=== PATIENT | male | born 1935 | race Caucasian/White ===

== ENCOUNTER 2019-01-16 13:11 | Inpatient (IN) | payer OTHER, MEDICAID ==
[~2019-01-16] VITALS: Ht 162.6 cm; Wt 44.5 kg
[2019-01-16 13:12] VITALS: BP_SYST 132
[2019-01-16 14:53] LABS: BILIRUBIN,URINE NEGATIVE (NEGATIVE); BLOOD, URINE NEGATIVE (NEGATIVE); COLOR,URINE YELLOW (YELLOW); GLUCOSE,URINE NEGATIVE (NEGATIVE); KETONES,URINE TRACE (NEGATIVE); LEUKOCYTE ESTERASE ,URINE NEGATIVE (NEGATIVE); NITRITE, URINE NEGATIVE (NEGATIVE); PROTEIN URINE 1+ (NEGATIVE); UROBILINOGEN,URINE 0.2 (0.2-1.0)
[2019-01-16 15:05] LABS: HEMATOCRIT 38.6 % (36-54); HEMOGLOBIN 12.5 g/dL (14.0-18.0); RED BLOOD CELL COUNT(AUTO) 4.14 MIL/uL (4.2-6.2); WHITE BLOOD COUNT (AUTO) 10.6 K/uL (4.8-10.8)
[2019-01-16 15:06] LABS: RBC,URINE 0-3 /HPF (0-3)
[2019-01-16 15:06] LABS: MEAN CORPUSCULAR HEMOGLOBIN 30 pg (27-31); MEAN CORPUSCULAR HGB CONC 33 % (32-36); MEAN CORPUSCULAR VOLUME 93 fL (79.0-98.0); PLATELET COUNT (AUTO) 263 K/uL (130-430); RED CELL DISTRIBUTION WIDTH 15.7 % (9.0-15.0)
[2019-01-16 15:07] LABS: MUCUS,URINE None Seen /LPF (None Seen)
[2019-01-16 15:11] LABS: ANION GAP 4 (5-15); CALCIUM 9.4 mg/dL (8.4-11.0); CHLORIDE 100 mmol/L (98-107); GLUCOSE 182 mg/dL (70-99); POTASSIUM 4.9 mmol/L (3.5-5.1); SODIUM SERUM 135 mmol/L (136-145); UREA NITROGEN, BLOOD 40 mg/dL (8-21)
[2019-01-16 15:11] LABS: CLARITY/URINE CLEAR (CLEAR); WBC,URINE 0-3 /HPF (0-3)
[2019-01-16 15:12] LABS: BACTERIA,URINE FEW /HPF (None Seen)
[2019-01-16 15:15] LABS: ALANINE AMINOTRANSFERASE 31 U/L (12-78); ALBUMIN 2.8 g/dL (3.4-4.8); ASPARTATE AMINOTRANSFERASE 31 U/L (10-37); LIPASE 54 U/L (73-393); TOTAL BILIRUBIN 0.4 mg/dL (0.0-1.0)
[2019-01-16 15:26] LABS: BAND % (MANUAL) 11 % (0-6); LYMPHOCYTES % (MANUAL) 5 % (20-46)
[2019-01-16 15:27] LABS: BASOPHILS % (MANUAL) 0 % (0-2); EOSINOPHILS % (MANUAL) 0 % (0-7); MONOCYTES % (MANUAL) 1 % (0-11)
[2019-01-16] MEDS ORDERED: KCL 20 mEq in D5/0.45NS 1000mL 1,000 ML IV SCH (15:52)
[2019-01-16 16:20] VITALS: BP_SYST 153
[2019-01-16 16:52] VITALS: BP_SYST 153
[2019-01-16] MEDS ORDERED: HALOPERIDOL LACTATE 5 MG/ML VIAL IM ONE (17:45)
[2019-01-16] MEDS ORDERED: HALOPERIDOL LACTATE 5 MG/ML VIAL ONE (18:12)
[2019-01-16] MEDS ORDERED: DOCU-144 PO (18:32)
[2019-01-16] MEDS ORDERED: DIVA-50 PO (18:34)
[2019-01-16] MEDS ORDERED: ALBMDI INH (18:34)
[2019-01-16] MEDS ORDERED: CLON0.5T12 PO (18:35)
[2019-01-16] MEDS ORDERED: IPRA3AMP9 INH (18:37)
[2019-01-16] MEDS ORDERED: HYDR-4272 PO (18:37)
[2019-01-16] MEDS ORDERED: MOM PO (18:37)
[2019-01-16] MEDS ORDERED: MEMA5TAB PO (18:45)
[2019-01-16] MEDS ORDERED: DIPH25CA83 PO (18:45)
[2019-01-16] MEDS ORDERED: ATOR40TA68 PO (18:45)
[2019-01-16] MEDS ORDERED: MULT-1117 PO (18:45)
[2019-01-16] MEDS ORDERED: ASCO500C18 PO (18:45)
[2019-01-16] MEDS ORDERED: DONE10TA44 PO (18:45)
[2019-01-16] MEDS ORDERED: TRAZ-218 PO (18:45)
[2019-01-16] MEDS ORDERED: ASPI-859 PO (18:45)
[2019-01-16] MEDS ORDERED: ACET-2165 PO (18:45)
[2019-01-16] MEDS ORDERED: NIFE60TA83 PO (18:45)
[2019-01-16] MEDS ORDERED: MELA3TAB PO (18:47)
[2019-01-16] MEDS ORDERED: PRED20TA PO (18:47)
[2019-01-16] MEDS ORDERED: DEXT30DR6 EACH EYE (18:48)
[2019-01-16] MEDS ORDERED: ACETAMINOPHEN 325 MG TABLET PO PRN (19:45)
[2019-01-16] MEDS ORDERED: MILK OF MAGNESIA 30 ML UDC PO PRN (19:45)
[2019-01-16] MEDS ORDERED: LevALBUTEROL HCL 1.25 MG/0.5 ML *CONC.* VIAL.NEB (XOPENEX CONC.) INH PRN (19:45)
[2019-01-16 20:00] VITALS: BP_SYST 127
[2019-01-16] MEDS: D5/0.45 NS 1,000 ML IV SCH (20:48)
[2019-01-16 20:55] VITALS: BP_SYST 153
[2019-01-16] MEDS: traZODone HCL 50 MG TABLET (DESYREL) PO SCH (21:06)
[2019-01-16] MEDS: DIVALPROEX SODIUM 500 MG TABLET( DEPAKOTE) PO SCH (21:06)
[2019-01-16] MEDS: DOCUSATE SODIUM 100 MG CAPSULE PO SCH (21:06)
[2019-01-16] MEDS: clonazePAM 0.5 MG TABLET PO SCH (21:07)
[2019-01-16] MEDS: ATORVASTATIN 20 MG TABLET PO SCH (21:07)
[2019-01-16] MEDS: DIPHENHYDRAMINE HCL 25 MG CAPSULE PO SCH (21:07)
[2019-01-16] MEDS: HYDROcodone/ACETAMIN 5-325 MG TAB (NORCO/ VICODIN) PO PRN (21:07)
[2019-01-16] MEDS ORDERED: cefTRIAXone 1 GM VIAL ONE (21:38)
[2019-01-16] MEDS ORDERED: AZITHROMYCIN 500 MG/VIAL (ZITHROMAX) IV ONE (21:39)
[2019-01-16] MEDS: cefTRIAXone 1 GM in D5W 50 ML IV SCH (21:44)
[2019-01-16] MEDS: AZITHROMYCIN 500 MG in NS 250 ML IV SCH (21:45)
[2019-01-16] MEDS: PEG 400/HYPROMELLOSE/GLYCERIN 15 ML DROPS BOTH EYES SCH (22:00)
[2019-01-16 23:28] VITALS: BP_SYST 141
[2019-01-16] MEDS: LevALBUTEROL HCL 1.25 MG/0.5 ML *CONC.* VIAL.NEB (XOPENEX CONC.) INH SCH (23:34)
[2019-01-17] MEDS: HYDROcodone/ACETAMIN 5-325 MG TAB (NORCO/ VICODIN) PO PRN ×3 (03:33→21:03)
[2019-01-17] MEDS: LevALBUTEROL HCL 1.25 MG/0.5 ML *CONC.* VIAL.NEB (XOPENEX CONC.) INH SCH ×3 (07:38→20:26)
[2019-01-17 08:00] VITALS: BP_SYST 151
[2019-01-17] MEDS: D5/0.45 NS 1,000 ML IV SCH ×2 (09:55→23:03)
[2019-01-17] MEDS: MULTIVITAMINS TAB 1 TABLET PO SCH (09:56)
[2019-01-17] MEDS: DIVALPROEX SODIUM 500 MG TABLET( DEPAKOTE) PO SCH ×2 (09:56→21:03)
[2019-01-17] MEDS: clonazePAM 0.5 MG TABLET PO SCH ×2 (09:57→21:03)
[2019-01-17] MEDS: PREDNISONE 20 MG TABLET PO SCH (09:57)
[2019-01-17] MEDS: NIFEDIPINE 30 MG TAB.ER.24 PO SCH (09:58)
[2019-01-17] MEDS: DOCUSATE SODIUM 100 MG CAPSULE PO SCH ×2 (09:58→21:02)
[2019-01-17] MEDS: ASPIRIN 81 MG TABLET(ECOTRIN) PO SCH (09:58)
[2019-01-17] MEDS: MEMANTINE HCL 5 MG TABLET PO SCH (09:58)
[2019-01-17] MEDS: DIPHENHYDRAMINE HCL 25 MG CAPSULE PO SCH ×2 (09:58→21:03)
[2019-01-17] MEDS: ASCORBIC ACID 500 MG TABLET PO SCH (09:58)
[2019-01-17 11:46] VITALS: BP_SYST 149
[2019-01-17 16:50] VITALS: BP_SYST 149
[2019-01-17 20:00] VITALS: BP_SYST 137
[2019-01-17] MEDS: PEG 400/HYPROMELLOSE/GLYCERIN 15 ML DROPS BOTH EYES SCH (21:00)
[2019-01-17] MEDS: AZITHROMYCIN 500 MG in NS 250 ML IV SCH (21:02)
[2019-01-17] MEDS: cefTRIAXone 1 GM in D5W 50 ML IV SCH (21:02)
[2019-01-17] MEDS: traZODone HCL 50 MG TABLET (DESYREL) PO SCH (21:03)
[2019-01-17] MEDS: ATORVASTATIN 20 MG TABLET PO SCH (21:03)
[2019-01-17 23:52] VITALS: BP_SYST 134
[2019-01-18 06:09] VITALS: BP_SYST 134
[2019-01-18] MEDS: LevALBUTEROL HCL 1.25 MG/0.5 ML *CONC.* VIAL.NEB (XOPENEX CONC.) INH SCH ×3 (07:22→19:46)
[2019-01-18 08:00] VITALS: BP_SYST 195
[2019-01-18 09:05] VITALS: BP_SYST 148
[2019-01-18] MEDS: DOCUSATE SODIUM 100 MG CAPSULE PO SCH ×2 (09:32→20:28)
[2019-01-18] MEDS: DIPHENHYDRAMINE HCL 25 MG CAPSULE PO SCH ×2 (09:32→20:27)
[2019-01-18] MEDS: MULTIVITAMINS TAB 1 TABLET PO SCH (09:32)
[2019-01-18] MEDS: PREDNISONE 20 MG TABLET PO SCH (09:32)
[2019-01-18] MEDS: MEMANTINE HCL 5 MG TABLET PO SCH (09:32)
[2019-01-18] MEDS: DIVALPROEX SODIUM 500 MG TABLET( DEPAKOTE) PO SCH ×2 (09:32→20:27)
[2019-01-18] MEDS: ASCORBIC ACID 500 MG TABLET PO SCH (09:32)
[2019-01-18] MEDS: ASPIRIN 81 MG TABLET(ECOTRIN) PO SCH (09:33)
[2019-01-18] MEDS: clonazePAM 0.5 MG TABLET PO SCH ×2 (09:33→20:27)
[2019-01-18] MEDS: NIFEDIPINE 30 MG TAB.ER.24 PO SCH (09:34)
[2019-01-18] MEDS ORDERED: KETOROLAC TROMETHAMINE 15 MG VIAL IVP PRN (10:15)
[2019-01-18 12:00] VITALS: BP_SYST 117
[2019-01-18] MEDS: HYDROcodone/ACETAMIN 5-325 MG TAB (NORCO/ VICODIN) PO PRN ×2 (13:47→20:27)
[2019-01-18] MEDS: D5/0.45 NS 1,000 ML IV SCH (13:48)
[2019-01-18 16:21] VITALS: BP_SYST 117
[2019-01-18 20:00] VITALS: BP_SYST 130
[2019-01-18] MEDS: traZODone HCL 50 MG TABLET (DESYREL) PO SCH (20:27)
[2019-01-18] MEDS: ATORVASTATIN 20 MG TABLET PO SCH (20:28)
[2019-01-18] MEDS: cefTRIAXone 1 GM in D5W 50 ML IV SCH (20:32)
[2019-01-18] MEDS: AZITHROMYCIN 500 MG in NS 250 ML IV SCH (20:32)
[2019-01-18] MEDS: PEG 400/HYPROMELLOSE/GLYCERIN 15 ML DROPS BOTH EYES SCH (20:33)
[2019-01-18] MEDS: GABAPENTIN 100 MG CAPSULE PO SCH (20:55)
[2019-01-19 00:36] VITALS: BP_SYST 149
[2019-01-19] MEDS: D5/0.45 NS 1,000 ML IV SCH (03:37)
[2019-01-19 07:55] VITALS: BP_SYST 186
[2019-01-19] MEDS: LevALBUTEROL HCL 1.25 MG/0.5 ML *CONC.* VIAL.NEB (XOPENEX CONC.) INH SCH ×2 (08:35→15:09)
[2019-01-19] MEDS: clonazePAM 0.5 MG TABLET PO SCH (09:20)
[2019-01-19] MEDS: GABAPENTIN 100 MG CAPSULE PO SCH (09:20)
[2019-01-19] MEDS: ASPIRIN 81 MG TABLET(ECOTRIN) PO SCH (09:21)
[2019-01-19] MEDS: ASCORBIC ACID 500 MG TABLET PO SCH (09:21)
[2019-01-19] MEDS: DIVALPROEX SODIUM 500 MG TABLET( DEPAKOTE) PO SCH (09:21)
[2019-01-19] MEDS: PREDNISONE 20 MG TABLET PO SCH (09:21)
[2019-01-19] MEDS: MULTIVITAMINS TAB 1 TABLET PO SCH (09:21)
[2019-01-19] MEDS: DOCUSATE SODIUM 100 MG CAPSULE PO SCH (09:21)
[2019-01-19] MEDS: DIPHENHYDRAMINE HCL 25 MG CAPSULE PO SCH (09:21)
[2019-01-19] MEDS: MEMANTINE HCL 5 MG TABLET PO SCH (09:21)
[2019-01-19] MEDS: NIFEDIPINE 30 MG TAB.ER.24 PO SCH (09:22)
[2019-01-19] MEDS ORDERED: MUPIROCIN 2% TOPICAL OINTMENT 22 GM NS ONE (11:45)
[2019-01-19 12:26] VITALS: BP_SYST 160
[2019-01-19 15:15] VITALS: BP_SYST 160
[2019-01-19] MEDS ORDERED: MUPIROCIN 2% TOPICAL OINTMENT 22 GM NS SCH (21:00)
== END 2019-01-19 16:10 | DRG 682 ==
LOC: SED 13:11 → SMU 15:52
PROVIDERS: ADMIT Family Medicine; ATTEND Family Medicine
DX: N17.9 Acute kidney failure, unspecified (principal); J18.9 Pneumonia, unspecified organism; G93.41 Metabolic encephalopathy; J44.0 Chronic obstructive pulmonary disease with (acute) lower respiratory infection; L03.113 Cellulitis of right upper limb; L03.114 Cellulitis of left upper limb; J44.1 Chronic obstructive pulmonary disease with (acute) exacerbation; E86.0 Dehydration; I48.2 Chronic atrial fibrillation; I48.0 Paroxysmal atrial fibrillation; F17.200 Nicotine dependence, unspecified, uncomplicated; F03.90 Unspecified dementia, unspecified severity, without behavioral disturbance, psychotic disturbance, mood disturbance, and anxiety; N40.0 Benign prostatic hyperplasia without lower urinary tract symptoms; R29.6 Repeated falls; G62.9 Polyneuropathy, unspecified
CPT/HCPCS: 36415; 74021; 80053; 81000-TC; 83690-TC; 85007; 85027; 87081; 93005; 94640; 94760; 99285; J0456; J0696; J1630; J1885; J7050; J7060; J7512; J7612; Q0163

== ENCOUNTER 2019-04-26 14:23 | Inpatient (IN) | payer OTHER ==
[~2019-04-26] VITALS: Ht 152.4 cm; Wt 36.7 kg
[~2019-04-26 14:23] MED LIST: ACET-2165 PO; ALBMDI INH; ASCO500C18 PO; ASPI-859 PO; ATOR40TA68 PO; CLON0.5T12 PO; DEXT30DR6 EACH EYE; DIPH25CA83 PO; DIVA-50 PO; DOCU-144 PO; DONE10TA44 PO; HYDR-4272 PO; IPRA3AMP9 INH; MELA3TAB PO; MEMA5TAB PO; MOM PO; MULT-1117 PO; NIFE60TA83 PO; PRED20TA PO; TRAZ-218 PO
[2019-04-26 14:29] VITALS: BP_SYST 136
[2019-04-26 15:24] LABS: BASOPHILS # (AUTO) 0.1 K/uL (0.0-0.2); BASOPHILS % (AUTO) 0.9 % (0.0-2.0); EOSINOPHILS # (AUTO) 0.1 K/uL (0.0-0.4); EOSINOPHILS % (AUTO) 0.8 % (0.0-4.0); HEMATOCRIT 32.5 % (36-54); HEMOGLOBIN 10.4 g/dL (14.0-18.0); LYMPHOCYTES # (AUTO) 1.5 K/uL (1.0-5.5); LYMPHOCYTES % (AUTO) 17.8 % (20.5-51.5); MEAN CORPUSCULAR HEMOGLOBIN 31 pg (27-31); MEAN CORPUSCULAR HGB CONC 32 % (32-36); MEAN CORPUSCULAR VOLUME 95 fL (79.0-98.0); MONOCYTES # (AUTO) 0.6 K/uL (0.0-1.0); MONOCYTES % (AUTO) 6.9 % (1.7-9.3); NEUTROPHILS # (AUTO) 6.3 K/uL (1.8-7.7); NEUTROPHILS % (AUTO) 73.6 % (40.0-70.0); PLATELET COUNT (AUTO) 279 K/uL (130-430); RED BLOOD CELL COUNT(AUTO) 3.42 MIL/uL (4.2-6.2); RED CELL DISTRIBUTION WIDTH 15.1 % (9.0-15.0); WHITE BLOOD COUNT (AUTO) 8.6 K/uL (4.8-10.8)
[2019-04-26 15:32] LABS: ANION GAP 3 (5-15); CALCIUM 9.3 mg/dL (8.4-11.0); CHLORIDE 108 mmol/L (98-107); CREATININE 1.34 mg/dL (0.55-1.30); GLUCOSE 92 mg/dL (70-99); POTASSIUM 4.3 mmol/L (3.5-5.1); SODIUM SERUM 140 mmol/L (136-145); UREA NITROGEN, BLOOD 41 mg/dL (8-21)
[2019-04-26 15:49] LABS: ALANINE AMINOTRANSFERASE 18 U/L (12-78); ALBUMIN 2.8 g/dL (3.4-4.8); ASPARTATE AMINOTRANSFERASE 12 U/L (10-37); LIPASE 49 U/L (73-393); TOTAL BILIRUBIN 0.3 mg/dL (0.0-1.0)
[2019-04-26] MEDS ORDERED: HALOPERIDOL LACTATE 5 MG/ML VIAL IM ONE (16:00)
[2019-04-26 16:02] LABS: PROTHROMBIN TIME 10.1 SECS (9.5-12.5)
[2019-04-26] MEDS ORDERED: methylPREDNISolone SOD SUCC/PF 62.5 MG/ML VIAL IVP ONE ×2 (16:15→17:15)
[2019-04-26] MEDS ORDERED: IPRATROPIUM/ALBUTEROL SULFATE 3 ML AMPUL.NEB (DUONEB) INH ONE (16:15)
[2019-04-26 16:31] LABS: BILIRUBIN,URINE NEGATIVE (NEGATIVE); BLOOD, URINE NEGATIVE (NEGATIVE); CLARITY/URINE CLEAR (CLEAR); COLOR,URINE YELLOW (YELLOW); GLUCOSE,URINE NEGATIVE (NEGATIVE); KETONES,URINE TRACE (NEGATIVE); LEUKOCYTE ESTERASE ,URINE NEGATIVE (NEGATIVE); NITRITE, URINE NEGATIVE (NEGATIVE); PROTEIN URINE TRACE (NEGATIVE); UROBILINOGEN,URINE 0.2 (0.2-1.0)
[2019-04-26] MEDS ORDERED: BUDE0.5A IH (16:40)
[2019-04-26] MEDS ORDERED: ROBAC PO (16:40)
[2019-04-26] MEDS ORDERED: LACT1POW8 MC (16:40)
[2019-04-26 16:43] LABS: BACTERIA,URINE FEW /HPF (None Seen); HYALINE CASTS, URINE 0-10 /LPF (None Seen); RBC,URINE 0-3 /HPF (0-3); URINE AMORPHOUS PHOSPHATES 1+ /HPF (None Seen); WBC,URINE 0-3 /HPF (0-3)
[2019-04-26 17:08] VITALS: BP_SYST 136
[2019-04-26 17:11] VITALS: BP_SYST 157
[2019-04-26] MEDS ORDERED: LevALBUTEROL HCL 1.25 MG/0.5 ML *CONC.* VIAL.NEB (XOPENEX CONC.) INH PRN (17:15)
[2019-04-26] MEDS ORDERED: LevALBUTEROL HCL 1.25 MG/0.5 ML *CONC.* VIAL.NEB (XOPENEX CONC.) INH ONE (17:15)
[2019-04-26] MEDS: D5/0.45 NS 1,000 ML IV SCH (17:35)
[2019-04-26] MEDS: BUDESONIDE 0.5 MG/2 ML AMPUL.NEB INH SCH (19:00)
[2019-04-26 19:55] VITALS: BP_SYST 130
[2019-04-26] MEDS: clonazePAM 0.5 MG TABLET PO SCH (20:03)
[2019-04-26] MEDS: ATORVASTATIN 20 MG TABLET PO SCH (20:03)
[2019-04-26] MEDS: traZODone HCL 50 MG TABLET (DESYREL) PO SCH (20:04)
[2019-04-26] MEDS: ACETAMINOPHEN 325 MG TABLET PO PRN (20:04)
[2019-04-26] MEDS: LACTOBACILLUS RHAMNOSUS GG 1 CAP CAPSULE PO SCH (20:04)
[2019-04-26] MEDS: MEGESTROL ACETATE 400 MG/10 ML UDC PO SCH (20:04)
[2019-04-26] MEDS: DONEPEZIL HCL 5 MG TABLET (ARICEPT) PO SCH (20:05)
[2019-04-26] MEDS: DOCUSATE SODIUM 100 MG CAPSULE PO SCH (20:05)
[2019-04-26] MEDS: ENOXAPARIN SODIUM 40 MG/0.4 ML SYRINGE SUBCUT SCH (20:07)
[2019-04-26] MEDS: methylPREDNISolone SOD SUCC/PF 62.5 MG/ML VIAL IVP SCH (23:21)
[2019-04-27 00:22] VITALS: BP_SYST 128
[2019-04-27] MEDS: LevALBUTEROL HCL 1.25 MG/0.5 ML *CONC.* VIAL.NEB (XOPENEX CONC.) INH SCH ×3 (00:46→19:52)
[2019-04-27] MEDS: HYDROcodone/ACETAMIN 5-325 MG TAB (NORCO/ VICODIN) PO PRN ×2 (01:25→17:10)
[2019-04-27] MEDS: ACETAMINOPHEN 325 MG TABLET PO PRN (04:02)
[2019-04-27] MEDS: methylPREDNISolone SOD SUCC/PF 62.5 MG/ML VIAL IVP SCH ×3 (05:09→18:16)
[2019-04-27 06:49] LABS: ANION GAP 5 (5-15); CALCIUM 9.1 mg/dL (8.4-11.0); CHLORIDE 106 mmol/L (98-107); CREATININE 1.49 mg/dL (0.55-1.30); GLUCOSE 144 mg/dL (70-99); POTASSIUM 5.3 mmol/L (3.5-5.1); SODIUM SERUM 138 mmol/L (136-145); UREA NITROGEN, BLOOD 42 mg/dL (8-21)
[2019-04-27 07:01] LABS: BASOPHILS % (AUTO) 0.2 % (0.0-2.0); HEMATOCRIT 30.3 % (36-54); HEMOGLOBIN 9.8 g/dL (14.0-18.0); LYMPHOCYTES # (AUTO) 0.5 K/uL (1.0-5.5); MEAN CORPUSCULAR HEMOGLOBIN 31 pg (27-31); MEAN CORPUSCULAR HGB CONC 32 % (32-36); MEAN CORPUSCULAR VOLUME 95 fL (79.0-98.0); MONOCYTES # (AUTO) 0.1 K/uL (0.0-1.0); MONOCYTES % (AUTO) 1.8 % (1.7-9.3); NEUTROPHILS # (AUTO) 4.7 K/uL (1.8-7.7); PLATELET COUNT (AUTO) 274 K/uL (130-430); RED BLOOD CELL COUNT(AUTO) 3.19 MIL/uL (4.2-6.2); RED CELL DISTRIBUTION WIDTH 14.8 % (9.0-15.0)
[2019-04-27 07:25] LABS: WHITE BLOOD COUNT (AUTO) 5.3 K/uL (4.8-10.8)
[2019-04-27 07:56] VITALS: BP_SYST 157
[2019-04-27] MEDS: LACTOBACILLUS RHAMNOSUS GG 1 CAP CAPSULE PO SCH ×2 (09:30→21:41)
[2019-04-27] MEDS: MEMANTINE HCL 5 MG TABLET PO SCH (09:30)
[2019-04-27] MEDS: MEGESTROL ACETATE 400 MG/10 ML UDC PO SCH ×2 (09:30→21:42)
[2019-04-27] MEDS: ASCORBIC ACID 500 MG TABLET PO SCH (09:30)
[2019-04-27] MEDS: MULTIVITAMINS TAB 1 TABLET PO SCH (09:30)
[2019-04-27] MEDS: DOCUSATE SODIUM 100 MG CAPSULE PO SCH ×2 (09:31→21:41)
[2019-04-27] MEDS: NIFEDIPINE 30 MG TAB.ER.24 PO SCH (09:31)
[2019-04-27] MEDS: ASPIRIN 81 MG TABLET(ECOTRIN) PO SCH (09:31)
[2019-04-27] MEDS: clonazePAM 0.5 MG TABLET PO SCH ×2 (09:32→21:42)
[2019-04-27 12:15] VITALS: BP_SYST 102
[2019-04-27] MEDS: BUDESONIDE 0.5 MG/2 ML AMPUL.NEB INH SCH ×2 (14:21→19:52)
[2019-04-27 16:42] VITALS: BP_SYST 108
[2019-04-27] MEDS: D5/0.45 NS 1,000 ML IV SCH (20:10)
[2019-04-27 20:15] VITALS: BP_SYST 153
[2019-04-27] MEDS: ENOXAPARIN SODIUM 40 MG/0.4 ML SYRINGE SUBCUT SCH (21:40)
[2019-04-27] MEDS: ATORVASTATIN 20 MG TABLET PO SCH (21:41)
[2019-04-27] MEDS: DONEPEZIL HCL 5 MG TABLET (ARICEPT) PO SCH (21:41)
[2019-04-27] MEDS: traZODone HCL 50 MG TABLET (DESYREL) PO SCH (21:42)
[2019-04-28 00:09] VITALS: BP_SYST 140
[2019-04-28] MEDS: methylPREDNISolone SOD SUCC/PF 62.5 MG/ML VIAL IVP SCH ×5 (00:18→23:04)
[2019-04-28] MEDS: LevALBUTEROL HCL 1.25 MG/0.5 ML *CONC.* VIAL.NEB (XOPENEX CONC.) INH SCH ×4 (00:42→20:23)
[2019-04-28] MEDS: BUDESONIDE 0.5 MG/2 ML AMPUL.NEB INH SCH ×2 (07:31→20:32)
[2019-04-28 08:18] VITALS: BP_SYST 146
[2019-04-28] MEDS: LACTOBACILLUS RHAMNOSUS GG 1 CAP CAPSULE PO SCH ×2 (08:39→21:39)
[2019-04-28] MEDS: MEGESTROL ACETATE 400 MG/10 ML UDC PO SCH ×2 (08:39→21:39)
[2019-04-28] MEDS: ASCORBIC ACID 500 MG TABLET PO SCH (08:39)
[2019-04-28] MEDS: clonazePAM 0.5 MG TABLET PO SCH ×2 (08:39→21:39)
[2019-04-28] MEDS: ASPIRIN 81 MG TABLET(ECOTRIN) PO SCH (08:39)
[2019-04-28] MEDS: DOCUSATE SODIUM 100 MG CAPSULE PO SCH ×2 (08:40→21:39)
[2019-04-28] MEDS: MULTIVITAMINS TAB 1 TABLET PO SCH (08:40)
[2019-04-28] MEDS: MEMANTINE HCL 5 MG TABLET PO SCH (08:40)
[2019-04-28] MEDS: NIFEDIPINE 30 MG TAB.ER.24 PO SCH (08:40)
[2019-04-28] MEDS: D5/0.45 NS 1,000 ML IV SCH ×2 (09:15→15:54)
[2019-04-28 12:35] VITALS: BP_SYST 101
[2019-04-28] MEDS: guaiFENesin 200 MG/CODEINE 20 MG/ 10 ML UDC PO PRN ×2 (15:51→21:54)
[2019-04-28 16:45] VITALS: BP_SYST 104
[2019-04-28 21:36] VITALS: BP_SYST 142
[2019-04-28] MEDS: ATORVASTATIN 20 MG TABLET PO SCH (21:39)
[2019-04-28] MEDS: DONEPEZIL HCL 5 MG TABLET (ARICEPT) PO SCH (21:39)
[2019-04-28] MEDS: traZODone HCL 50 MG TABLET (DESYREL) PO SCH (21:39)
[2019-04-28] MEDS: ENOXAPARIN SODIUM 40 MG/0.4 ML SYRINGE SUBCUT SCH (21:41)
[2019-04-29 00:10] VITALS: BP_SYST 144
[2019-04-29] MEDS: LevALBUTEROL HCL 1.25 MG/0.5 ML *CONC.* VIAL.NEB (XOPENEX CONC.) INH SCH ×4 (01:20→19:34)
[2019-04-29] MEDS: guaiFENesin 200 MG/CODEINE 20 MG/ 10 ML UDC PO PRN (04:07)
[2019-04-29] MEDS: methylPREDNISolone SOD SUCC/PF 62.5 MG/ML VIAL IVP SCH ×3 (05:10→17:43)
[2019-04-29] MEDS: BUDESONIDE 0.5 MG/2 ML AMPUL.NEB INH SCH ×2 (07:13→19:35)
[2019-04-29 07:52] VITALS: BP_SYST 166
[2019-04-29 08:27] VITALS: BP_SYST 166
[2019-04-29] MEDS: LACTOBACILLUS RHAMNOSUS GG 1 CAP CAPSULE PO SCH ×2 (08:45→21:37)
[2019-04-29] MEDS: ASCORBIC ACID 500 MG TABLET PO SCH (08:45)
[2019-04-29] MEDS: ASPIRIN 81 MG TABLET(ECOTRIN) PO SCH (08:45)
[2019-04-29] MEDS: MEMANTINE HCL 5 MG TABLET PO SCH (08:45)
[2019-04-29] MEDS: MULTIVITAMINS TAB 1 TABLET PO SCH (08:45)
[2019-04-29] MEDS: MEGESTROL ACETATE 400 MG/10 ML UDC PO SCH ×2 (08:45→21:37)
[2019-04-29] MEDS: DOCUSATE SODIUM 100 MG CAPSULE PO SCH ×2 (08:45→21:37)
[2019-04-29] MEDS: NIFEDIPINE 30 MG TAB.ER.24 PO SCH (08:46)
[2019-04-29] MEDS: clonazePAM 0.5 MG TABLET PO SCH ×2 (08:46→21:37)
[2019-04-29 14:45] VITALS: BP_SYST 94
[2019-04-29] MEDS: HYDROcodone/ACETAMIN 5-325 MG TAB (NORCO/ VICODIN) PO PRN (16:22)
[2019-04-29] MEDS: D5/0.45 NS 1,000 ML IV SCH (16:25)
[2019-04-29 16:35] VITALS: BP_SYST 117
[2019-04-29 20:00] VITALS: BP_SYST 124
[2019-04-29] MEDS: traZODone HCL 50 MG TABLET (DESYREL) PO SCH (21:37)
[2019-04-29] MEDS: ATORVASTATIN 20 MG TABLET PO SCH (21:37)
[2019-04-29] MEDS: DONEPEZIL HCL 5 MG TABLET (ARICEPT) PO SCH (21:37)
[2019-04-29] MEDS: methylPREDNISolone SOD SUCC 40 MG/ML VIAL IVP SCH (21:37)
[2019-04-29] MEDS: ENOXAPARIN SODIUM 40 MG/0.4 ML SYRINGE SUBCUT SCH (21:38)
[2019-04-30] MEDS: LevALBUTEROL HCL 1.25 MG/0.5 ML *CONC.* VIAL.NEB (XOPENEX CONC.) INH SCH ×3 (01:11→13:35)
[2019-04-30 02:45] VITALS: BP_SYST 133
[2019-04-30] MEDS: HYDROcodone/ACETAMIN 5-325 MG TAB (NORCO/ VICODIN) PO PRN ×2 (03:38→16:46)
[2019-04-30 06:07] LABS: BASOPHILS % (AUTO) 0.1 % (0.0-2.0); HEMATOCRIT 25.7 % (36-54); HEMOGLOBIN 8.5 g/dL (14.0-18.0); LYMPHOCYTES # (AUTO) 0.3 K/uL (1.0-5.5); MEAN CORPUSCULAR HEMOGLOBIN 31 pg (27-31); MEAN CORPUSCULAR HGB CONC 33 % (32-36); MEAN CORPUSCULAR VOLUME 93 fL (79.0-98.0); MONOCYTES # (AUTO) 0.4 K/uL (0.0-1.0); MONOCYTES % (AUTO) 6.3 % (1.7-9.3); NEUTROPHILS # (AUTO) 6.3 K/uL (1.8-7.7); NEUTROPHILS % (AUTO) 89.6 % (40.0-70.0); PLATELET COUNT (AUTO) 222 K/uL (130-430); RED BLOOD CELL COUNT(AUTO) 2.76 MIL/uL (4.2-6.2); RED CELL DISTRIBUTION WIDTH 14.6 % (9.0-15.0)
[2019-04-30 06:13] LABS: ANION GAP 2 (5-15); CALCIUM 8.8 mg/dL (8.4-11.0); CHLORIDE 106 mmol/L (98-107); CREATININE 1.57 mg/dL (0.55-1.30); GLUCOSE 160 mg/dL (70-99); POTASSIUM 4.2 mmol/L (3.5-5.1); SODIUM SERUM 134 mmol/L (136-145); UREA NITROGEN, BLOOD 44 mg/dL (8-21)
[2019-04-30] MEDS: BUDESONIDE 0.5 MG/2 ML AMPUL.NEB INH SCH (07:17)
[2019-04-30 08:10] VITALS: BP_SYST 157
[2019-04-30] MEDS: MEGESTROL ACETATE 400 MG/10 ML UDC PO SCH (08:21)
[2019-04-30] MEDS: MULTIVITAMINS TAB 1 TABLET PO SCH (08:21)
[2019-04-30] MEDS: clonazePAM 0.5 MG TABLET PO SCH (08:21)
[2019-04-30] MEDS: ASCORBIC ACID 500 MG TABLET PO SCH (08:21)
[2019-04-30] MEDS: MEMANTINE HCL 5 MG TABLET PO SCH (08:21)
[2019-04-30] MEDS: methylPREDNISolone SOD SUCC 40 MG/ML VIAL IVP SCH (08:21)
[2019-04-30] MEDS: ASPIRIN 81 MG TABLET(ECOTRIN) PO SCH (08:21)
[2019-04-30] MEDS: NIFEDIPINE 30 MG TAB.ER.24 PO SCH (08:22)
[2019-04-30] MEDS: DOCUSATE SODIUM 100 MG CAPSULE PO SCH (08:22)
[2019-04-30] MEDS: LACTOBACILLUS RHAMNOSUS GG 1 CAP CAPSULE PO SCH (08:22)
[2019-04-30 12:20] VITALS: BP_SYST 102
[2019-04-30 15:50] VITALS: BP_SYST 119
[2019-04-30 17:05] VITALS: BP_SYST 117
== END 2019-04-30 17:45 | DRG 177 ==
LOC: SED 14:23 → STU 16:26 → SMU 04-27 14:29
PROVIDERS: ADMIT Family Medicine; ATTEND Family Medicine
DX: J15.6 Pneumonia due to other Gram-negative bacteria (principal); N17.0 Acute kidney failure with tubular necrosis; E43 Unspecified severe protein-calorie malnutrition; J44.1 Chronic obstructive pulmonary disease with (acute) exacerbation; J44.0 Chronic obstructive pulmonary disease with (acute) lower respiratory infection; E86.0 Dehydration; F03.90 Unspecified dementia, unspecified severity, without behavioral disturbance, psychotic disturbance, mood disturbance, and anxiety; I10 Essential (primary) hypertension; I35.0 Nonrheumatic aortic (valve) stenosis; I48.0 Paroxysmal atrial fibrillation; E78.5 Hyperlipidemia, unspecified; N40.0 Benign prostatic hyperplasia without lower urinary tract symptoms; Z87.891 Personal history of nicotine dependence; Z79.82 Long term (current) use of aspirin; Z79.899 Other long term (current) drug therapy
CPT/HCPCS: 36415; 71045; 80048; 80053; 81000-TC; 83605; 83690-TC; 83880; 84484; 85025; 85610-TC; 85730-TC; 87040-TC; 87081; 93005; 93306; 94640; 94760; 96365; 96372; 96375; 99285; G0378; J1030; J1630; J1650; J1956; J2930; J7612; J7620; J7626

== ENCOUNTER 2019-06-22 22:26 | Emergency (ER) | payer OTHER ==
[~2019-06-22] VITALS: Ht 157.5 cm; Wt 70.3 kg
[~2019-06-22 22:26] MED LIST changes: +BUDE0.5A IH; -DEXT30DR6 EACH EYE; -DIPH25CA83 PO; -DIVA-50 PO; +LACT1POW8 MC; -MOM PO; +ROBAC PO
[2019-06-22 22:27] VITALS: BP_SYST 139
--- NOTE | 2019-06-22 22:28 | NUR ---
Placed in room 6 . Placed on front desk monitor, blood pressure machine and pulse oximeter. To gown for exam. Side rails up.
--- NOTE | 2019-06-22 22:30 | NUR ---
Pt was BIB BLS from [facility] for abnormal labs, HCT and BUN. Pt states he has abdominal pain. Pt AAO x 2 and non-ambulatory. No other injuries/complaints per patient or noted.
--- NOTE | 2019-06-22 22:32 | NUR ---
ER Dr. Beckham at bedside examining patient.
--- NOTE | 2019-06-22 22:44 | NUR ---
Xray at bedside, pt tolerated well.
[2019-06-22] MEDS ORDERED: DONE10TA44 PO (22:54)
[2019-06-22] MEDS ORDERED: CLON0.5T12 PO (23:00)
--- NOTE | 2019-06-22 23:00 | NUR ---
Medication reconciliation completed with information provided by EM[facility] from [facility]. Any prior medication reconciliation on file was reviewed and corrected.
--- NOTE | 2019-06-22 23:02 | NUR ---
Patient's code status is Full code paperwork completed and placed in chart. Patient arrived with MG from [facility].
[2019-06-22 23:24] LABS: BASOPHILS % (AUTO) 0.2 % (0.0-2.0); EOSINOPHILS # (AUTO) 0.1 K/uL (0.0-0.4); EOSINOPHILS % (AUTO) 0.9 % (0.0-4.0); HEMATOCRIT 27.8 % (36-54); HEMOGLOBIN 8.7 g/dL (14.0-18.0); LYMPHOCYTES # (AUTO) 0.5 K/uL (1.0-5.5); LYMPHOCYTES % (AUTO) 4.9 % (20.5-51.5); MEAN CORPUSCULAR HEMOGLOBIN 28 pg (27-31); MEAN CORPUSCULAR HGB CONC 31 % (32-36); MEAN CORPUSCULAR VOLUME 89 fL (79.0-98.0); MONOCYTES # (AUTO) 0.5 K/uL (0.0-1.0); MONOCYTES % (AUTO) 4.3 % (1.7-9.3); NEUTROPHILS # (AUTO) 9.9 K/uL (1.8-7.7); NEUTROPHILS % (AUTO) 89.7 % (40.0-70.0); PLATELET COUNT (AUTO) 193 K/uL (130-430); RED BLOOD CELL COUNT(AUTO) 3.13 MIL/uL (4.2-6.2); RED CELL DISTRIBUTION WIDTH 16.5 % (9.0-15.0)
[2019-06-22 23:37] LABS: BILIRUBIN,URINE NEGATIVE (NEGATIVE); BLOOD, URINE NEGATIVE (NEGATIVE); CLARITY/URINE CLEAR (CLEAR); COLOR,URINE YELLOW (YELLOW); GLUCOSE,URINE NEGATIVE (NEGATIVE); KETONES,URINE NEGATIVE (NEGATIVE); LEUKOCYTE ESTERASE ,URINE NEGATIVE (NEGATIVE); NITRITE, URINE NEGATIVE (NEGATIVE); PROTEIN URINE TRACE (NEGATIVE)
[2019-06-22 23:42] LABS: INR 1.1 (0.80-1.20); PROTHROMBIN TIME 10.9 SECS (9.5-12.5)
[2019-06-22 23:45] LABS: ANION GAP 5 (5-15); CALCIUM 8.8 mg/dL (8.4-11.0); CHLORIDE 109 mmol/L (98-107); GLUCOSE 126 mg/dL (70-99); POTASSIUM 5.1 mmol/L (3.5-5.1); SODIUM SERUM 141 mmol/L (136-145); UREA NITROGEN, BLOOD 49 mg/dL (8-21)
[2019-06-22 23:50] LABS: ALANINE AMINOTRANSFERASE 39 U/L (12-78); ALBUMIN 2.6 g/dL (3.4-4.8); ASPARTATE AMINOTRANSFERASE 30 U/L (10-37); TOTAL BILIRUBIN 0.2 mg/dL (0.0-1.0)
[2019-06-23] MEDS ORDERED: NS 500 ML IV ONE
[2019-06-23 02:13] VITALS: BP_SYST 165
--- NOTE | 2019-06-23 02:13 | NUR ---
Spoke with Heaven from [facility] in regards to patient's status and transfer back. Gave report to Heaven.
--- NOTE | 2019-06-23 02:13 | NUR ---
Patient given written and verbal discharge instructions and verbalizes understanding. ER MD discussed with patient the results and treatment provided. Patient in stable condition. ID arm band removed. IV catheter removed intact and dressing applied, no active bleeding. No Rx given. Patient educated on pain management and to follow up with PMD. Pain Scale 0. Opportunity for questions provided and answered. Medication side effect fact sheet provided.
== END 2019-06-23 02:13 | disposition home or self-care (01) ==
LOC: SED 22:26
DX: E86.0 Dehydration (principal); D53.9 Nutritional anemia, unspecified; D64.89 Other specified anemias; F03.90 Unspecified dementia, unspecified severity, without behavioral disturbance, psychotic disturbance, mood disturbance, and anxiety; I48.91 Unspecified atrial fibrillation; I10 Essential (primary) hypertension; Z79.899 Other long term (current) drug therapy
CPT/HCPCS: 36415; 71045; 74018; 80053; 81003; 83605; 84484; 85025; 85610; 85730; 87040; 87086; 93005; 99284; J7030

== ENCOUNTER 2019-06-29 16:41 | Inpatient (IN) | payer OTHER ==
[~2019-06-29] VITALS: Ht 152.4 cm; Wt 34.9 kg
[~2019-06-29 16:41] MED LIST changes: -ACET-2165 PO; -ALBMDI INH; -ROBAC PO
[2019-06-29 16:47] VITALS: BP_SYST 145
[2019-06-29] MEDS ORDERED: NS 500 ML IV ONE (17:30)
[2019-06-29] MEDS ORDERED: MOM PO (17:47)
[2019-06-29] MEDS ORDERED: ALBMDI INH (17:47)
[2019-06-29 17:55] LABS: BASOPHILS # (AUTO) 0.1 K/uL (0.0-0.2); BASOPHILS % (AUTO) 0.5 % (0.0-2.0); HEMATOCRIT 28.7 % (36-54); HEMOGLOBIN 8.9 g/dL (14.0-18.0); LYMPHOCYTES # (AUTO) 0.2 K/uL (1.0-5.5); LYMPHOCYTES % (AUTO) 1.4 % (20.5-51.5); MEAN CORPUSCULAR HEMOGLOBIN 27 pg (27-31); MEAN CORPUSCULAR HGB CONC 31 % (32-36); MEAN CORPUSCULAR VOLUME 86 fL (79.0-98.0); MONOCYTES # (AUTO) 0.3 K/uL (0.0-1.0); MONOCYTES % (AUTO) 2.5 % (1.7-9.3); NEUTROPHILS # (AUTO) 13.4 K/uL (1.8-7.7); NEUTROPHILS % (AUTO) 95.6 % (40.0-70.0); PLATELET COUNT (AUTO) 326 K/uL (130-430); RED BLOOD CELL COUNT(AUTO) 3.35 MIL/uL (4.2-6.2); RED CELL DISTRIBUTION WIDTH 16.9 % (9.0-15.0)
[2019-06-29 18:27] LABS: BILIRUBIN,URINE NEGATIVE (NEGATIVE); CLARITY/URINE CLEAR (CLEAR); COLOR,URINE YELLOW (YELLOW); GLUCOSE,URINE NEGATIVE (NEGATIVE); KETONES,URINE NEGATIVE (NEGATIVE); LEUKOCYTE ESTERASE ,URINE NEGATIVE (NEGATIVE); NITRITE, URINE NEGATIVE (NEGATIVE); PROTEIN URINE 1+ (NEGATIVE); UROBILINOGEN,URINE 0.2 (0.2-1.0)
[2019-06-29 18:33] LABS: ANION GAP 5 (5-15); CALCIUM 10.1 mg/dL (8.4-11.0); CHLORIDE 104 mmol/L (98-107); CREATININE 1.41 mg/dL (0.55-1.30); GLUCOSE 135 mg/dL (70-99); POTASSIUM 4.8 mmol/L (3.5-5.1); SODIUM SERUM 136 mmol/L (136-145); UREA NITROGEN, BLOOD 57 mg/dL (8-21)
[2019-06-29 18:38] LABS: ALANINE AMINOTRANSFERASE 119 U/L (12-78); ALBUMIN 2.9 g/dL (3.4-4.8); ASPARTATE AMINOTRANSFERASE 40 U/L (10-37); TOTAL BILIRUBIN 0.3 mg/dL (0.0-1.0)
[2019-06-29 18:38] LABS: BLOOD, URINE TRACE (NEGATIVE)
[2019-06-29 18:40] LABS: INR 1.1 (0.80-1.20); PROTHROMBIN TIME 10.6 SECS (9.5-12.5)
[2019-06-29 18:43] LABS: BACTERIA,URINE FEW /HPF (None Seen); WBC,URINE 0-3 /HPF (0-3)
[2019-06-29 18:44] LABS: MUCUS,URINE None Seen /LPF (None Seen)
[2019-06-29] MEDS ORDERED: PIPERACILLIN/TAZO 3.375 GM in NS 50 ML IV ONE (19:00)
[2019-06-29] MEDS ORDERED: PIPERACILLIN/TAZOBACTAM 3.375 GM/VIAL (ZOSYN) IV ONE (19:19)
[2019-06-29 22:34] VITALS: BP_SYST 141
[2019-06-29 22:40] VITALS: BP_SYST 137
[2019-06-29] MEDS: KCL 20 mEq in D5/0.45NS 1000mL 1,000 ML IV SCH (22:42)
[2019-06-29] MEDS ORDERED: KCL 20 mEq in D5/0.45NS 1000mL 1,000 ML IV ONE (22:48)
[2019-06-29] MEDS ORDERED: clonazePAM 0.5 MG TABLET PO PRN (23:00)
[2019-06-29] MEDS ORDERED: MILK OF MAGNESIA 30 ML UDC PO PRN (23:00)
[2019-06-29 23:08] VITALS: BP_SYST 137
[2019-06-30] MEDS ORDERED: PIPERACILLIN/TAZOBACTAM 3.375 GM/VIAL (ZOSYN) IV ONE (00:50)
[2019-06-30] MEDS ORDERED: ZOSYN (PIPERACILLIN/TAZO) 2.25 GM in DEX-ISO (50ml) IV ONE (03:00)
[2019-06-30 06:40] LABS: ANION GAP 7 (5-15); CALCIUM 9.3 mg/dL (8.4-11.0); CHLORIDE 111 mmol/L (98-107); GLUCOSE 111 mg/dL (70-99); POTASSIUM 4.4 mmol/L (3.5-5.1); SODIUM SERUM 144 mmol/L (136-145); UREA NITROGEN, BLOOD 49 mg/dL (8-21)
[2019-06-30 06:49] LABS: BASOPHILS % (AUTO) 0.2 % (0.0-2.0); EOSINOPHILS # (AUTO) 0.1 K/uL (0.0-0.4); EOSINOPHILS % (AUTO) 0.5 % (0.0-4.0); HEMATOCRIT 26.6 % (36-54); HEMOGLOBIN 8.4 g/dL (14.0-18.0); LYMPHOCYTES # (AUTO) 0.5 K/uL (1.0-5.5); LYMPHOCYTES % (AUTO) 4.6 % (20.5-51.5); MEAN CORPUSCULAR HEMOGLOBIN 27 pg (27-31); MEAN CORPUSCULAR HGB CONC 31 % (32-36); MEAN CORPUSCULAR VOLUME 86 fL (79.0-98.0); MONOCYTES # (AUTO) 0.6 K/uL (0.0-1.0); MONOCYTES % (AUTO) 5.4 % (1.7-9.3); NEUTROPHILS % (AUTO) 89.3 % (40.0-70.0); PLATELET COUNT (AUTO) 294 K/uL (130-430); RED BLOOD CELL COUNT(AUTO) 3.09 MIL/uL (4.2-6.2); WHITE BLOOD COUNT (AUTO) 11.2 K/uL (4.8-10.8)
[2019-06-30 06:57] LABS: TOTAL IRON BIND. CAPACITY 309 ug/dL (250-450)
[2019-06-30] MEDS: BUDESONIDE 0.5 MG/2 ML AMPUL.NEB INH SCH ×2 (07:00→19:56)
[2019-06-30] MEDS: PIPERACILLIN/TAZO 2.25G/DEX-IS 50 ML IV SCH ×3 (08:43→18:08)
[2019-06-30] MEDS: MULTIVITAMINS TAB 1 TABLET PO SCH (08:46)
[2019-06-30] MEDS: NIFEDIPINE 30 MG TAB.ER.24 PO SCH (08:46)
[2019-06-30] MEDS: ASCORBIC ACID 500 MG TABLET PO SCH (08:46)
[2019-06-30] MEDS: DOCUSATE SODIUM 100 MG CAPSULE PO SCH ×2 (08:46→21:06)
[2019-06-30] MEDS: MEMANTINE HCL 5 MG TABLET PO SCH (08:46)
[2019-06-30 08:47] VITALS: BP_SYST 125
[2019-06-30] MEDS: ASPIRIN 81 MG TABLET(ECOTRIN) PO SCH (08:47)
[2019-06-30] MEDS: LACTOBACILLUS RHAMNOSUS GG 1 CAP CAPSULE PO SCH ×2 (08:47→21:06)
[2019-06-30] MEDS: ENOXAPARIN SODIUM 30 MG/0.3 ML SYRINGE SUBCUT SCH (08:48)
[2019-06-30] MEDS ORDERED: PREDNISONE 20 MG TABLET PO SCH (09:00)
[2019-06-30] MEDS: KCL 20 mEq in D5/0.45NS 1000mL 1,000 ML IV SCH (13:23)
[2019-06-30 14:01] VITALS: BP_SYST 114; BP_SYST 154
[2019-06-30 16:58] VITALS: BP_SYST 136
[2019-06-30 20:00] VITALS: BP_SYST 141
[2019-06-30] MEDS: traZODone HCL 50 MG TABLET (DESYREL) PO SCH (21:06)
[2019-06-30] MEDS: SOD FERRIC GLUC COMPLEX/SUC 125 MG in NS 100 ML IV SCH (21:06)
[2019-06-30] MEDS: DONEPEZIL HCL 5 MG TABLET (ARICEPT) PO SCH (21:06)
[2019-06-30] MEDS: ATORVASTATIN 20 MG TABLET PO SCH (21:06)
[2019-06-30] MEDS: MELATONIN 3 MG TABLET PO SCH (21:09)
[2019-06-30] MEDS: methylPREDNISolone SOD SUCC/PF 62.5 MG/ML VIAL IVP SCH (22:57)
[2019-06-30] MEDS: ACETAMINOPHEN 325 MG TABLET PO PRN (22:58)
[2019-07-01 00:33] VITALS: BP_SYST 155
[2019-07-01] MEDS: KCL 20 mEq in D5/0.45NS 1000mL 1,000 ML IV SCH ×3 (03:06→19:20)
[2019-07-01] MEDS: PIPERACILLIN/TAZO 2.25G/DEX-IS 50 ML IV SCH ×4 (03:13→17:24)
[2019-07-01 04:05] VITALS: BP_SYST 154
[2019-07-01 05:59] LABS: BASOPHILS % (AUTO) 0.1 % (0.0-2.0); HEMATOCRIT 24.6 % (36-54); LYMPHOCYTES # (AUTO) 0.2 K/uL (1.0-5.5); LYMPHOCYTES % (AUTO) 1.7 % (20.5-51.5); MEAN CORPUSCULAR HEMOGLOBIN 27 pg (27-31); MEAN CORPUSCULAR HGB CONC 32 % (32-36); MEAN CORPUSCULAR VOLUME 85 fL (79.0-98.0); MONOCYTES # (AUTO) 0.2 K/uL (0.0-1.0); MONOCYTES % (AUTO) 1.9 % (1.7-9.3); NEUTROPHILS # (AUTO) 11.7 K/uL (1.8-7.7); NEUTROPHILS % (AUTO) 96.3 % (40.0-70.0); PLATELET COUNT (AUTO) 275 K/uL (130-430); RED CELL DISTRIBUTION WIDTH 16.6 % (9.0-15.0); WHITE BLOOD COUNT (AUTO) 12.1 K/uL (4.8-10.8)
[2019-07-01] MEDS: methylPREDNISolone SOD SUCC/PF 62.5 MG/ML VIAL IVP SCH ×3 (06:35→21:07)
[2019-07-01 06:57] LABS: ANION GAP 4 (5-15); CALCIUM 8.9 mg/dL (8.4-11.0); CHLORIDE 106 mmol/L (98-107); CREATININE 1.41 mg/dL (0.55-1.30); GLUCOSE 155 mg/dL (70-99); POTASSIUM 5.2 mmol/L (3.5-5.1); SODIUM SERUM 135 mmol/L (136-145); UREA NITROGEN, BLOOD 53 mg/dL (8-21)
[2019-07-01] MEDS: BUDESONIDE 0.5 MG/2 ML AMPUL.NEB INH SCH ×2 (07:12→19:21)
[2019-07-01 07:16] LABS: HEMOGLOBIN 7.8 g/dL (14.0-18.0)
[2019-07-01 08:00] VITALS: BP_SYST 162
[2019-07-01] MEDS: ENOXAPARIN SODIUM 30 MG/0.3 ML SYRINGE SUBCUT SCH (08:31)
[2019-07-01] MEDS: ASCORBIC ACID 500 MG TABLET PO SCH (08:32)
[2019-07-01] MEDS: NIFEDIPINE 30 MG TAB.ER.24 PO SCH (08:32)
[2019-07-01] MEDS: MEMANTINE HCL 5 MG TABLET PO SCH (08:32)
[2019-07-01] MEDS: MULTIVITAMINS TAB 1 TABLET PO SCH (08:32)
[2019-07-01] MEDS: DOCUSATE SODIUM 100 MG CAPSULE PO SCH ×2 (08:32→21:03)
[2019-07-01] MEDS: LACTOBACILLUS RHAMNOSUS GG 1 CAP CAPSULE PO SCH ×2 (08:32→21:02)
[2019-07-01] MEDS: ASPIRIN 81 MG TABLET(ECOTRIN) PO SCH (08:32)
[2019-07-01 12:30] VITALS: BP_SYST 112
[2019-07-01 14:06] LABS: FERRITIN 41 ng/mL (30-400); FOLATE (FOLIC ACID) >20.0 ng/mL (>3.0)
[2019-07-01] MEDS: ACETAMINOPHEN 325 MG TABLET PO PRN (15:25)
[2019-07-01] MEDS: IPRATROPIUM/ALBUTEROL SULFATE 3 ML AMPUL.NEB (DUONEB) INH PRN (18:57)
[2019-07-01 20:00] VITALS: BP_SYST 149
[2019-07-01] MEDS: SOD FERRIC GLUC COMPLEX/SUC 125 MG in NS 100 ML IV SCH (20:58)
[2019-07-01] MEDS: ATORVASTATIN 20 MG TABLET PO SCH (21:03)
[2019-07-01] MEDS: traZODone HCL 50 MG TABLET (DESYREL) PO SCH (21:03)
[2019-07-01] MEDS: DONEPEZIL HCL 5 MG TABLET (ARICEPT) PO SCH (21:03)
[2019-07-01] MEDS: MELATONIN 3 MG TABLET PO SCH (21:07)
[2019-07-02] VITALS (8 sets, daily range): BP systolic 108–191
[2019-07-02] MEDS: PIPERACILLIN/TAZO 2.25G/DEX-IS 50 ML IV SCH ×4 (01:42→17:17)
[2019-07-02] MEDS: methylPREDNISolone SOD SUCC/PF 62.5 MG/ML VIAL IVP SCH ×3 (06:06→21:48)
[2019-07-02] MEDS: KCL 20 mEq in D5/0.45NS 1000mL 1,000 ML IV SCH (06:07)
[2019-07-02] MEDS: BUDESONIDE 0.5 MG/2 ML AMPUL.NEB INH SCH ×2 (07:36→19:59)
[2019-07-02] MEDS: MULTIVITAMINS TAB 1 TABLET PO SCH (08:58)
[2019-07-02] MEDS: MEMANTINE HCL 5 MG TABLET PO SCH (08:58)
[2019-07-02] MEDS: DOCUSATE SODIUM 100 MG CAPSULE PO SCH ×2 (08:59→21:48)
[2019-07-02] MEDS: ASCORBIC ACID 500 MG TABLET PO SCH (08:59)
[2019-07-02] MEDS: NIFEDIPINE 30 MG TAB.ER.24 PO SCH (08:59)
[2019-07-02] MEDS: LACTOBACILLUS RHAMNOSUS GG 1 CAP CAPSULE PO SCH ×2 (08:59→21:48)
[2019-07-02] MEDS: ASPIRIN 81 MG TABLET(ECOTRIN) PO SCH (08:59)
[2019-07-02] MEDS: ENOXAPARIN SODIUM 30 MG/0.3 ML SYRINGE SUBCUT SCH (09:00)
[2019-07-02 10:58] LABS: ANION GAP 8 (5-15); CHLORIDE 103 mmol/L (98-107); CREATININE 1.59 mg/dL (0.55-1.30); GLUCOSE 183 mg/dL (70-99); POTASSIUM 4.8 mmol/L (3.5-5.1); SODIUM SERUM 134 mmol/L (136-145); UREA NITROGEN, BLOOD 53 mg/dL (8-21)
[2019-07-02 11:04] LABS: CALCIUM 9.2 mg/dL (8.4-11.0)
[2019-07-02 11:05] LABS: BASOPHILS # (AUTO) 0.1 K/uL (0.0-0.2); HEMOGLOBIN 11.3 g/dL (14.0-18.0)
[2019-07-02 11:13] LABS: BASOPHILS % (AUTO) 0.4 % (0.0-2.0); HEMATOCRIT 35.5 % (36-54); LYMPHOCYTES # (AUTO) 0.3 K/uL (1.0-5.5); MEAN CORPUSCULAR HEMOGLOBIN 28 pg (27-31); MEAN CORPUSCULAR HGB CONC 32 % (32-36); MEAN CORPUSCULAR VOLUME 86 fL (79.0-98.0); MONOCYTES # (AUTO) 0.4 K/uL (0.0-1.0); MONOCYTES % (AUTO) 2.6 % (1.7-9.3); NEUTROPHILS # (AUTO) 13.5 K/uL (1.8-7.7); PLATELET COUNT (AUTO) 262 K/uL (130-430); WHITE BLOOD COUNT (AUTO) 14.2 K/uL (4.8-10.8)
[2019-07-02] MEDS: IPRATROPIUM/ALBUTEROL SULFATE 3 ML AMPUL.NEB (DUONEB) INH PRN (20:09)
[2019-07-02] MEDS: SOD FERRIC GLUC COMPLEX/SUC 125 MG in NS 100 ML IV SCH (21:47)
[2019-07-02] MEDS: traZODone HCL 50 MG TABLET (DESYREL) PO SCH (21:48)
[2019-07-02] MEDS: ATORVASTATIN 20 MG TABLET PO SCH (21:48)
[2019-07-02] MEDS: DONEPEZIL HCL 5 MG TABLET (ARICEPT) PO SCH (21:48)
[2019-07-02] MEDS: MELATONIN 3 MG TABLET PO SCH (21:50)
[2019-07-03] VITALS (8 sets, daily range): BP systolic 109–186
[2019-07-03] MEDS: PIPERACILLIN/TAZO 2.25G/DEX-IS 50 ML IV SCH ×4 (00:33→17:30)
[2019-07-03] MEDS: hydrALAZINE HCL 20 MG/ML VIAL IVP PRN ×2 (04:26→16:49)
[2019-07-03] MEDS: methylPREDNISolone SOD SUCC/PF 62.5 MG/ML VIAL IVP SCH ×2 (06:15→13:10)
[2019-07-03 07:36] LABS: ANION GAP 10 (5-15); CALCIUM 9.9 mg/dL (8.4-11.0); CHLORIDE 107 mmol/L (98-107); CREATININE 1.39 mg/dL (0.55-1.30); GLUCOSE 107 mg/dL (70-99); POTASSIUM 4.7 mmol/L (3.5-5.1); SODIUM SERUM 141 mmol/L (136-145); UREA NITROGEN, BLOOD 57 mg/dL (8-21)
[2019-07-03 07:46] LABS: BASOPHILS % (AUTO) 0.2 % (0.0-2.0); HEMATOCRIT 37.9 % (36-54); LYMPHOCYTES # (AUTO) 0.4 K/uL (1.0-5.5); LYMPHOCYTES % (AUTO) 2.6 % (20.5-51.5); MEAN CORPUSCULAR HEMOGLOBIN 27 pg (27-31); MEAN CORPUSCULAR HGB CONC 32 % (32-36); MEAN CORPUSCULAR VOLUME 86 fL (79.0-98.0); MONOCYTES # (AUTO) 0.5 K/uL (0.0-1.0); MONOCYTES % (AUTO) 3.6 % (1.7-9.3); NEUTROPHILS # (AUTO) 13.5 K/uL (1.8-7.7); NEUTROPHILS % (AUTO) 93.6 % (40.0-70.0); PLATELET COUNT (AUTO) 267 K/uL (130-430); RED BLOOD CELL COUNT(AUTO) 4.41 MIL/uL (4.2-6.2); RED CELL DISTRIBUTION WIDTH 16.4 % (9.0-15.0); WHITE BLOOD COUNT (AUTO) 14.4 K/uL (4.8-10.8)
[2019-07-03] MEDS: BUDESONIDE 0.5 MG/2 ML AMPUL.NEB INH SCH (08:00)
[2019-07-03] MEDS: IPRATROPIUM/ALBUTEROL SULFATE 3 ML AMPUL.NEB (DUONEB) INH PRN (08:01)
[2019-07-03] MEDS: ASPIRIN 81 MG TABLET(ECOTRIN) PO SCH (08:25)
[2019-07-03] MEDS: DOCUSATE SODIUM 100 MG CAPSULE PO SCH (08:25)
[2019-07-03] MEDS: MULTIVITAMINS TAB 1 TABLET PO SCH (08:25)
[2019-07-03] MEDS: MEMANTINE HCL 5 MG TABLET PO SCH (08:25)
[2019-07-03] MEDS: LACTOBACILLUS RHAMNOSUS GG 1 CAP CAPSULE PO SCH (08:25)
[2019-07-03] MEDS: ASCORBIC ACID 500 MG TABLET PO SCH (08:25)
[2019-07-03] MEDS: ENOXAPARIN SODIUM 30 MG/0.3 ML SYRINGE SUBCUT SCH (08:26)
[2019-07-03] MEDS: NIFEDIPINE 30 MG TAB.ER.24 PO SCH (08:26)
[2019-07-03] MEDS: ACETAMINOPHEN 325 MG TABLET PO PRN (11:48)
== END 2019-07-03 19:30 | DRG 871 ==
LOC: SED 16:41 → STU 19:02 → SMU 07-02 17:01
PROVIDERS: ADMIT Family Medicine; ATTEND Family Medicine
PROC: 30233N1 Transfusion of Nonautologous Red Blood Cells into Peripheral Vein, Percutaneous Approach (ICD-10-PCS; principal; 2019-07-01)
DX: A41.9 Sepsis, unspecified organism (principal); J15.6 Pneumonia due to other Gram-negative bacteria; N17.0 Acute kidney failure with tubular necrosis; J44.0 Chronic obstructive pulmonary disease with (acute) lower respiratory infection; J44.1 Chronic obstructive pulmonary disease with (acute) exacerbation; E86.0 Dehydration; I10 Essential (primary) hypertension; I48.0 Paroxysmal atrial fibrillation; F03.90 Unspecified dementia, unspecified severity, without behavioral disturbance, psychotic disturbance, mood disturbance, and anxiety; E78.5 Hyperlipidemia, unspecified; D50.9 Iron deficiency anemia, unspecified; N40.0 Benign prostatic hyperplasia without lower urinary tract symptoms; Z87.891 Personal history of nicotine dependence; Z79.899 Other long term (current) drug therapy
CPT/HCPCS: 36415; 36600; 71045; 80048; 80053; 81000-TC; 82607; 82728; 82746; 82803-TC; 83540-TC; 83550-TC; 83605; 83735-TC; 83880; 84484; 85025; 85610-TC; 85730-TC; 86886; 86900; 86901; 86920; 87040-TC; 87081; 87086; 93005; 94640; 94760; 99285; G0378; J0360; J1650; J2543; J2916; J2930; J7040; J7060; J7512; J7620; J7626; P9021